=== PATIENT | male | born 1960 | race Caucasian/White ===

== ENCOUNTER 2017-01-04 03:09 | Emergency (ER) | payer OTHER ==
[~2017-01-04] VITALS: Ht 170.2 cm; Wt 77.0 kg
[2017-01-04 03:13] VITALS: Ht 170.2 cm; Wt 77.0 kg
[2017-01-04] MEDS ORDERED: DIPHTH/TET/ACEL PERTUSS (ADULT) 0.5 ML VIAL IM* ONE (04:00)
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
--- NOTE | 2017-01-04 04:40 | RADRPT ---
PROCEDURE: CT brain without contrast. CLINICAL INDICATION: Injury and dizziness. TECHNIQUE: CT scan of the brain was performed on a multi-detector high-resolution CT scanner. Co ntiguous axial images were obtained from the skull base to the vertex without intravenous contrast. Coronal and sagittal reformatted images were also obtained. Images were reviewed on the PACS works tation. One or more of the following dose reduction techniques were used: - Automated exposure control. - Adjustment of the mA and/or kV according to patient size. - Use of iterative reconstruction technique. Exam CTD/vol = 44.68 mGy. Total exam DLP = 720.23 mGy-cm. COMPARISON: None. FINDINGS: The ventricles and cortical sulci are within normal limits for patient's age. There are no areas of abnormal attenuation within the brain parenchyma. There is no mass effect or midline shift. There is no intracranial hemorrhage or abnormal extra-axial collection. The calvarium is intact. There is no evidence of fracture. There is mild mucoperiosteal disease with in scattered ethmoid air cells and sphenoid sinuses bilaterally with multiple air-fluid levels. Hemanth ateral maxillary sinuses are moderately opacified with air-fluid levels. Bilateral mastoid air cell s are clear. IMPRESSION: No acute intracranial abnormality identified. Moderate paranasal sinus disease with multiple air-fluid levels. .Luisito Gardiner MD, MD Date Time Electronically viewed and signed by .Luisito Gardiner MD, MD on 01/04/2017 04:40 .T/
--- NOTE | 2017-01-04 04:55 | RADRPT ---
PROCEDURE: XR Femur. CLINICAL INDICATION: Trauma TECHNIQUE: Two views of the left femur were performed. COMPARISON: No pertinent prior examinations were submitted for comparison. FINDINGS: There is normal bone mineralization.There is no acute fracture or dislocation.No osseous lesion is i dentified. There is no soft tissue swelling. IMPRESSION: No acute fracture or dislocation. RPTAT: HIKT .Isaias Faith MD, MD Date Time Electronically viewed and signed by .Isaias Faith MD, on 01/04/2017 04:55 .T/
[2017-01-04] MEDS ORDERED: CEPH-443 PO (04:59)
[2017-01-04] MEDS ORDERED: HYDR-906 PO (04:59)
[2017-01-04] MEDS ORDERED: CYCL-319 PO (04:59)
== END 2017-01-04 05:31 | disposition home or self-care (01) ==
LOC: FTE 03:09
DX: S80.212A Abrasion, left knee, initial encounter (principal); S70.12XA Contusion of left thigh, initial encounter; S06.0X0A Concussion without loss of consciousness, initial encounter; V28.2XXA Unspecified motorcycle rider injured in noncollision transport accident in nontraffic accident, initial encounter; Z23 Encounter for immunization
CPT/HCPCS: 70450; 73550; 90471; 90715